=== PATIENT | female | born 1945 | race Caucasian/White ===

== ENCOUNTER 2023-06-17 09:17 | Emergency (ER) | payer MEDICARE, BC, SELFPAY ==
[2023-06-17] VITALS (7 sets, daily range): BP systolic 122–189; BP diastolic 68–97; BMI 44.2
--- NOTE | 2023-06-17 09:29 | ED.GENMED ---
History of Present Illness
General
Chief Complaint: Fall
Source: patient and family
Exam Limitations: none
Time Seen by Provider: 06/17/23 09:27
Nursing documentation reviewed up to this point in time: agreed with
History of Present Illness
History of Present Illness:
The patient is a 77-year-old female with past medical history of previous C1-C2 fracture hyperlipidemia diabetes presenting to the emergency department after her dog tried to run away from her and pulled her to her side landing on her face and hands
bilaterally. She is unsure when her last tetanus shot was. Denies any loss of consciousness numbness weakness or nausea.
Past History
Past History
ED Past Medical History: Hypercholesterolemia and Other (Spinal stenosis, morbid obesity)
ED Past Surgical History: Other
Social History
Tobacco: Non-smoker
Review of Systems
Review of Systems
Allergies reviewed?: Yes
All Other Systems: ROS reviewed and negative except as documented in HPI and ROS
Phy Exam
Physical Exam
Physical Exam:
GENERAL: Alert , in no apparent distress
EYE: pupils equal and reactive
NECK: Supple, no significant adenopathy.
ENT: Abrasions throughout the nasal bridge but no deviation no septal hematoma o/p clr, mmm.
CARDIAC: Regular rate and rhythm .
LUNGS: Clear breath sounds bilaterally, no acute respiratory distress, no wheezes/rales/rhonchi
ABDOMEN: Soft, without focal tenderness, no r/g, no cvat
NEUROLOGICAL: Alert and oriented, no focal neuro deficits
SKIN: Superficial abrasion to the left index finger good flaking roll operator strength able to push and pull normally. Warm and dry, skin intact.
MUSCULOSKELETAL: No edema, well perfused. Good range of motion and strength of lower extremities bilaterally.
PSYCH: Normal and appropriate interaction.
Course
Orders/Labs/Results
Orders:
Orders
06/17/23 09:27
CT Cervical Spine W/o Iv Contr Urgent
Comment:
Reason For Exam: fall neck pain, hx of c1/c2 injury in the past
CT Facial Bones W/o Iv Contras Urgent
Comment:
Reason For Exam: fall hit face, nasal injury
CT Head W/o Iv Contrast Urgent
Comment:
Reason For Exam: fall hit head
06/17/23 09:28
Tetanus/Diphth/Acelpertussis [Adacel] 0.5 ml IM .ONCE ONE
Vital Signs
Initial and Last Documented VS:
Initial Vital Signs
Temp Pulse Resp BP Pulse Ox
98 F 71 18 184/97 97
06/17/23 09:20 06/17/23 09:20 06/17/23 09:20 06/17/23 09:20 06/17/23 09:20
Last Documented Vital Signs
Temp Pulse Resp BP Pulse Ox
98 F 64 15 150/93 97
06/17/23 09:20 06/17/23 10:30 06/17/23 10:30 06/17/23 10:00 06/17/23 10:30
Procedures
Laceration Closure
Nose:
Status of Wound: clean
Size of Wound in cm: 1
Description of Wound Edges: sharp
Preparation: cleaned with saline
Anesthesia: 1% Lidocaine
Revision/Debridement: routine- no revision and irrigate-direct pressure
Wound exploration: explored to base- no FB and no tendon involvement
Type of Closure: single layer closure
Number of sutures: 3
Additional information:
Fast-absorbing plain gut used
MDM/Problems Addressed
MDM/Problems Addressed:
77-year-old female presenting to the emergency department today after being pulled over by her dog prior to arrival. She claims this was a strictly mechanical injury denies any lightheadedness did not lose consciousness. Not on blood thinners.
Does have an injury to her nose and has some abrasions surrounding the nose. Did initially have a nasal bleed which concluded on its own with pressure. Plan for CT scan of the head neck and face. Does have a history of C1 and C2 fracture from
previous fall last year but was seen at a hospital in [place]. No emergent findings other than minimally displaced nasal bone fracture no ongoing bleeding here generally well-appearing throughout ER stay normal vital signs small laceration
closed with absorbable sutures to the nasal bridge advised keep the area clean covered and return for any worsening, new or concerning symptoms.
*Critical Care Note
Total Time (30-74mins, 75-104mins- exclusive of procedures): Not Applicable
ED Attending Note
-
Portions of this chart may have been created with voice recognition software.� Occasional wrong word or��sound alike� substitutions may have occurred due to the inherent limitations of voice recognition software.
Discharge Plan
Departure
Patient Disposition: Home (Routine Discharge)
Date of Disposition: 06/17/23
Time of Disposition: 12:27
Patient with high blood pressure during this ER visit?: No
Condition: Good
Covid-19: Not Applicable
Discharge Problem:
Fracture of nasal bone, Laceration of nose, Fall
Instructions: Laceration Repair With Stitches (DC)
Prescriptions:
No Action
prednisone 50 MG tablet
50 mg PO Daily Qty: 4 0RF
Referrals:
Rod Guido MD [Family Provider] -
Glen Werner MD [Active] - Follow up in 10 days
Activity Restrictions/Additional Instructions:
You came to the emergency department today with concerns of symptoms after a fall. You are found to have a minimally displaced fracture of the nose but otherwise no emergent intracranial injury or cervical injuries. You have 3 observable sutures
placed to the nose these will dissolve over the next week or so. Please keep the area clean and covered as needed. Return to the emergency department for any worsening, new or concerning symptoms.
Interventions
Interventions:
*Risk Screen - Suicide Last Done: 06/17/23 09:20
*General Assessment Last Done: 06/17/23 09:20
*Neglect/Abuse Screening Last Done: 06/17/23 09:20
ED-Musculoskeletal Assessment Last Done: 06/17/23 09:49
ED- Neurological Assessment Last Done: 06/17/23 09:49
ED-Skin Assessment Last Done: 06/17/23 09:49
Discharge Date and Time
Print Language: CITIZ[place]
[2023-06-17] MEDS: ADACEL 0.5 ML IM (09:59)
== END 2023-06-17 13:24 | disposition home or self-care (01) ==
LOC: EMR 09:17
PROVIDERS: EMERGENCY PHYSICIAN Emergency Medicine; FAMILY PHYSICIAN Family Medicine
DX: S02.2XXA Fracture of nasal bones, initial encounter for closed fracture (principal); S01.21XA Laceration without foreign body of nose, initial encounter; W19.XXXA Unspecified fall, initial encounter; Z23 Encounter for immunization; E78.00 Pure hypercholesterolemia, unspecified; M48.00 Spinal stenosis, site unspecified; E66.01 Morbid (severe) obesity due to excess calories; E11.9 Type 2 diabetes mellitus without complications
CPT/HCPCS: 99284; 12011; 90471; 70450; 70486; 72125; 90715

== ENCOUNTER → 2023-10-07 11:08 | Outpatient (REF) | payer MEDICARE, BC, SELFPAY | LOC: HWRAD 11:08 | PROVIDERS: ATTENDING PHYSICIAN Physician Assistant Medical; FAMILY PHYSICIAN Family Medicine | DX: D32.9 Benign neoplasm of meninges, unspecified (principal) | CPT/HCPCS: 70450 ==